=== PATIENT | female | born 1995 | race Caucasian/White ===

== ENCOUNTER 2016-06-22 05:32 | Inpatient (IN) | payer OTHER ==
[~2016-06-22] VITALS: Ht 154.9 cm; Wt 83.2 kg
[2016-06-22] VITALS (9 sets, daily range): BP systolic 112–122; BP diastolic 61–78
[~2016-06-22 05:32] MED LIST: MEDROXYPRO150 MG/1 M; NAPROSYN500 MG PO; NAPROXEN375 MG PO; NIFEDIPINE10 MG PO; PRENATAL TABLE1 EAC3 PO; TUMS500 MG PO; TYLENOL EXTRA500 MG PO
[2016-06-22] MEDS ORDERED: IBUPROFEN800 MG PO (11:35)
[2016-06-22] MEDS ORDERED: ENDOCET 5-3251 EACH PO (11:35)
[2016-06-23 02:55] VITALS: BP 112/58
[2016-06-23 07:19] LABS: EOSINOPHIL (%) 0.8 % (0-5); EOSINOPHIL COUNT 0.1 K/uL (0-0.3); HEMATOCRIT 27.6 % (36.0-46.0); IMMATURE GRANULOCYTE (%) 0.2 % (0.0-0.7); LYMPHOCYTE COUNT 2.1 K/uL (1.0-2.8); MCH 28.6 PG (29.0-34.0); MCHC 34.4 G/DL (30.0-36.0); MCV 83.1 FL (83-99); MEAN PLAT.VOLUME 11.5 uM^3 (9.5-12.4); MONOCYTE (%) 10.4 % (3-12); MONOCYTE COUNT 1.1 K/uL (0-0.8); NEUTROPHIL (%) 69.5 % (45-76); NEUTROPHIL COUNT 7.6 K/uL (1.8-6.4); RBC DIS.WIDTH-CV 12.9 % (11.8-14.6); RBC DIS.WIDTH-SD 38.8 % (39-53)
[2016-06-23 07:23] VITALS: BP 113/63
[2016-06-23 08:47] LABS: RED BLOOD COUNT 3.32 M/uL (3.80-5.20); USER ID TLW
[2016-06-23 11:44] VITALS: BP 131/69
[2016-06-23 15:21] VITALS: BP 118/70
== END 2016-06-23 17:05 | disposition home or self-care (01) | DRG 766 ==
LOC: 2WEST 05:32 → 2SOUTH 10:15 → 2WEST 06-23 17:05
PROVIDERS: Obstetrics & Gynecology
PROC: 10D00Z1 Extraction of Products of Conception, Low, Open Approach (ICD-10-PCS; principal; 2016-06-22)
DX: O32.1XX0 Maternal care for breech presentation, not applicable or unspecified (principal); O99.214 Obesity complicating childbirth; E66.9 Obesity, unspecified; O34.03 Maternal care for unspecified congenital malformation of uterus, third trimester; Q51.3 Bicornate uterus; Z14.1 Cystic fibrosis carrier; Z3A.39 39 weeks gestation of pregnancy; Z37.0 Single live birth
CPT/HCPCS: 36415; 85025; 86850; 86900; 86901; J0690; J2274; J2405; J3010; J7120